=== PATIENT | female | born 1950 ===

== ENCOUNTER → 2017-12-22 | Day surgery (SDC) | payer OTHER ==
[~2017-12-22] MED LIST: MACROBID 100 M100 MG PO; SYNTHROID150 MCG PO; TRAMADOL HCL-AP1 TAB PO; ULTRACET PO
== END | disposition home or self-care (01) ==
LOC: ADM 12-15 09:00 → CIR.AMB 05:30
DX: N81.6 Rectocele (principal); N81.5 Vaginal enterocele